=== PATIENT | male | born 2000 | race African-American/Black ===

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

== ENCOUNTER 2019-09-10 09:38 | Emergency (ER) | payer MEDICAID ==
[~2019-09-10] VITALS: Ht 182.9 cm; Wt 73.9 kg
[2019-09-10 09:44] VITALS: BP 104/51
== END 2019-09-10 11:14 | disposition home or self-care (01) ==
LOC: ER 09:38
DX: J06.9 Acute upper respiratory infection, unspecified (principal); L73.9 Follicular disorder, unspecified

== ENCOUNTER 2019-09-21 12:07 | Emergency (ER) | payer MEDICAID ==
[~2019-09-21] VITALS: Ht 182.9 cm; Wt 73.9 kg
[2019-09-21 14:43] LABS: Basophils # (auto) 0.1 10 ^3/uL (0-0.2); Eosinophils # (auto) 0 10 ^3/uL (0-0.8); Lymphocytes # (auto) 1.6 10 ^3/uL (0.4-5.4)
[2019-09-21 14:45] LABS: Basophils % (auto) 0.5 % (0.0-2.0); Hemoglobin 17.3 g/dL (13.5-17.5); Lymphocytes % (auto) 13.4 % (10.0-50.0); Mean Corpuscular Hemoglobin 27.2 pg (28.0-32.0); Mean Corpuscular Hgb Conc. 33.9 g/dL (32.0-36.0); Mean Corpuscular Volume 80.2 fL (80.0-100.0); Monocytes # (auto) 1.1 10 ^3/uL (0-1.3); Monocytes % (auto) 8.7 % (0.0-12.0); Neutrophils # (auto) 9.5 10 ^3/uL (1.6-8.6); Neutrophils % (auto) 77.4 % (37.0-80.0); Nucleated Red Blood Cells % 0.1 %; Platelet Count (auto) 182 10^3/uL (140-450); Red Blood Cells 6.36 10^6/uL (4.5-5.90); Red Cell Distribution Width 13.6 % (11.8-14.3); White Blood Cell 12.3 10^3/uL (4.4-10.8)
[2019-09-21 14:58] LABS: Albumin 4.1 g/dL (3.4-5.0); Calcium 9.8 mg/dL (8.5-10.1); Potassium 3.3 mmol/L (3.5-5.1)
[2019-09-21] MEDS ORDERED: cefTRIAXone W LIDOCAINE 1 GM IM IM ONE (15:00)
[2019-09-21 15:02] LABS: BUN/Creatinine Ratio 8.1; Bilirubin, Total 0.6 mg/dL (0.2-1.0); Total Protein 8.1 g/dL (6.4-8.2)
[2019-09-21] MEDS ORDERED: POTASSIUM EFFERVESENT TAB 25 MEQ PO ONE (15:30)
[2019-09-21 15:36] VITALS: BP 114/64
[2019-09-21] MEDS ORDERED: cefTRIAXone SOD 1,000 MG VL ONE (15:39)
[2019-09-21] MEDS ORDERED: cefTRIAXone SOD 1,000 MG VL IM ONE (15:45)
[2019-09-21] MEDS ORDERED: LIDOCAINE 1% HCL (LOCAL ANESTH.) INJ 20ML MDV IJ ONE (15:45)
== END 2019-09-21 16:05 | disposition home or self-care (01) ==
LOC: ER 12:10
DX: D72.829 Elevated white blood cell count, unspecified (principal); E87.6 Hypokalemia; L53.8 Other specified erythematous conditions; R10.84 Generalized abdominal pain
CPT/HCPCS: 36415; 80053; 81002; 83690; 85025; 96372; 99283; J0696

== ENCOUNTER 2022-02-20 11:15 | Emergency (ER) | payer MEDICAID ==
[~2022-02-20] VITALS: Ht 182.9 cm; Wt 65.3 kg
[2022-02-20 13:28] VITALS: BP 100/55
[2022-02-20] MEDS ORDERED: ONDANSETRON ODT 4 MG TAB PO ONE (13:45)
[2022-02-20] MEDS ORDERED: SUMAtriptan SUCCINATE 6 MG/0.5 ML VL SC ONE (13:45)
[2022-02-20] MEDS ORDERED: SUMA50TA2 PO (14:04)
[2022-02-20] MEDS ORDERED: ONDA-144 PO (14:04)
== END 2022-02-20 14:11 | disposition home or self-care (01) ==
LOC: ER 11:15
DX: G43.909 Migraine, unspecified, not intractable, without status migrainosus (principal); F12.10 Cannabis abuse, uncomplicated
CPT/HCPCS: 96372; 99283; J3030; Q0162

== ENCOUNTER 2022-07-02 14:05 | Emergency (ER) | payer MEDICAID ==
[~2022-07-02] VITALS: Ht 180.3 cm; Wt 68.5 kg
[~2022-07-02 14:05] MED LIST: ONDA-144 PO; SUMA50TA2 PO
[2022-07-02] MEDS ORDERED: TETANUS-DIPTH-ACEL PERTUSSIS 0.5ML SYR Tdap IM ONE (14:30)
[2022-07-02] MEDS ORDERED: LIDOCAINE 1% HCL (LOCAL ANESTH.) INJ 20ML MDV ID ONE (14:30)
[2022-07-02] MEDS ORDERED: NEOMYCIN-BACITRACIN-POLYM 15GM TOP OINT TOP ONE (15:00)
[2022-07-02 15:18] VITALS: BP 116/68
[2022-07-02] MEDS ORDERED: BACDST PO (15:45)
[2022-07-02] MEDS ORDERED: IBUP800T26 PO (15:45)
[2022-07-02] MEDS ORDERED: HYDR-4902 PO (15:45)
[2022-07-02] MEDS ORDERED: NEOMYCIN-BACITRACIN-POLYM 15GM TOP OINT TOP SCH (22:00)
== END 2022-07-02 16:37 | disposition left against medical advice (07) ==
LOC: ER 14:05
DX: S62.631A Displaced fracture of distal phalanx of left index finger, initial encounter for closed fracture (principal); S61.211A Laceration without foreign body of left index finger without damage to nail, initial encounter; Z79.899 Other long term (current) drug therapy; W20.8XXA Other cause of strike by thrown, projected or falling object, initial encounter; Y93.89 Activity, other specified; Y92.89 Other specified places as the place of occurrence of the external cause; Y99.8 Other external cause status
CPT/HCPCS: 11730; 73130; 90471; 90715; 99284; J2001

== ENCOUNTER 2022-07-12 09:48 | Emergency (ER) | payer MEDICAID ==
[~2022-07-12] VITALS: Ht 180.3 cm; Wt 70.0 kg
[~2022-07-12 09:48] MED LIST changes: +BACDST PO; +HYDR-4902 PO; +IBUP800T26 PO
[2022-07-12 10:13] VITALS: BP 118/67
== END 2022-07-12 15:20 | disposition left against medical advice (07) ==
LOC: ER 09:48
DX: Z48.02 Encounter for removal of sutures (principal); Z53.21 Procedure and treatment not carried out due to patient leaving prior to being seen by health care provider

== ENCOUNTER 2022-07-14 11:14 | Emergency (ER) | payer MEDICAID ==
[~2022-07-14] VITALS: Ht 180.3 cm; Wt 68.1 kg
[2022-07-14 11:53] VITALS: BP 107/76
== END 2022-07-14 16:46 | disposition left against medical advice (07) ==
LOC: ER 11:14
DX: S61.211D Laceration without foreign body of left index finger without damage to nail, subsequent encounter (principal); Z53.21 Procedure and treatment not carried out due to patient leaving prior to being seen by health care provider; X58.XXXD Exposure to other specified factors, subsequent encounter

== ENCOUNTER 2022-07-21 10:50 | Emergency (ER) | payer MEDICAID ==
[~2022-07-21] VITALS: Ht 180.3 cm; Wt 69.2 kg
[2022-07-21 13:30] VITALS: BP 132/59
[2022-07-21] MEDS ORDERED: IBUP600T28 PO (14:00)
[2022-07-21] MEDS ORDERED: KETOROLAC TROMETH 30 MG/ML 1ML VIAL IM ONE (14:00)
== END 2022-07-21 14:10 | disposition home or self-care (01) ==
LOC: ER 10:50
DX: S61.411D Laceration without foreign body of right hand, subsequent encounter (principal); Z79.1 Long term (current) use of non-steroidal anti-inflammatories (NSAID); Z79.899 Other long term (current) drug therapy; X58.XXXD Exposure to other specified factors, subsequent encounter
CPT/HCPCS: 96372; 99283; J1885